=== PATIENT | female | born 1935 | race Caucasian/White ===

== ENCOUNTER 2021-09-14 09:39 | Inpatient (IN) | payer OTHER, MEDICAID ==
[~2021-09-14] VITALS: Ht 154.9 cm; Wt 52.2 kg
[2021-09-14 10:10] VITALS: BP_SYST 176
[2021-09-14] MEDS ORDERED: ONDANSETRON HCL 4 MG/2 ML VIAL IVP ONE (10:30)
[2021-09-14] MEDS ORDERED: MECLIZINE HCL 25 MG TABLET (ANITVERT) PO ONE (10:30)
[2021-09-14 10:41] LABS: BASOPHILS % (AUTO) 0.8 % (0.0-2.0); EOSINOPHILS # (AUTO) 0.1 K/uL (0.0-0.4); EOSINOPHILS % (AUTO) 1.8 % (0.0-4.0); HEMATOCRIT 38.1 % (36-48); HEMOGLOBIN 12.9 g/dL (12.0-16.0); LYMPHOCYTES # (AUTO) 0.9 K/uL (1.0-5.5); LYMPHOCYTES % (AUTO) 20.3 % (20.5-51.5); MEAN CORPUSCULAR HEMOGLOBIN 28 pg (27-31); MEAN CORPUSCULAR HGB CONC 34 % (32-36); MEAN CORPUSCULAR VOLUME 82 fL (79.0-98.0); MONOCYTES # (AUTO) 0.2 K/uL (0.0-1.0); MONOCYTES % (AUTO) 5.2 % (1.7-9.3); NEUTROPHILS # (AUTO) 3.1 K/uL (1.8-7.7); NEUTROPHILS % (AUTO) 71.9 % (40.0-70.0); PLATELET COUNT (AUTO) 152 K/uL (130-430); RED BLOOD CELL COUNT(AUTO) 4.64 MIL/uL (4.2-6.2); RED CELL DISTRIBUTION WIDTH 14.8 % (9.0-15.0); WHITE BLOOD COUNT (AUTO) 4.3 K/uL (4.8-10.8)
[2021-09-14 10:55] LABS: ANION GAP 7 (5-15); CALCIUM 8.8 mg/dL (8.4-11.0); CHLORIDE 104 mmol/L (98-107); GLUCOSE 130 mg/dL (70-99); POTASSIUM 4.4 mmol/L (3.5-5.1); SODIUM SERUM 139 mmol/L (136-145); UREA NITROGEN, BLOOD 25 mg/dL (8-21)
[2021-09-14 11:03] LABS: ALANINE AMINOTRANSFERASE 12 U/L (12-78); ALBUMIN 3.6 g/dL (3.4-4.8); ASPARTATE AMINOTRANSFERASE 33 U/L (10-37); TOTAL BILIRUBIN 0.8 mg/dL (0.0-1.0)
[2021-09-14] MEDS ORDERED: ONDANSETRON 4 MG ODT TAB ONE (11:34)
[2021-09-14] MEDS ORDERED: ONDANSETRON 4 MG ODT TAB PO ONE (11:45)
[2021-09-14] MEDS ORDERED: DIAZEPAM 5 MG TABLET (VALIUM) PO ONE (12:15)
[2021-09-14] MEDS ORDERED: METOCLOPRAMIDE HCL 10 MG/2 ML VIAL IVP ONE ×2 (12:15→13:00)
[2021-09-14] MEDS ORDERED: DIAZEPAM 5 MG TABLET (VALIUM) ONE (12:34)
[2021-09-14 12:50] LABS: BILIRUBIN,URINE NEGATIVE (NEGATIVE); BLOOD, URINE 2+ (NEGATIVE); CLARITY/URINE CLEAR (CLEAR); COLOR,URINE YELLOW (YELLOW); GLUCOSE,URINE NEGATIVE (NEGATIVE); KETONES,URINE NEGATIVE (NEGATIVE); LEUKOCYTE ESTERASE ,URINE NEGATIVE (NEGATIVE); NITRITE, URINE NEGATIVE (NEGATIVE); PH,URINE 6.5 (5.0-8.0); PROTEIN URINE TRACE (NEGATIVE); UROBILINOGEN,URINE 0.2 (0.2-1.0)
[2021-09-14] MEDS ORDERED: DIPHENHYDRAMINE INJ 50 MG/ML VIAL IVP ONE (13:30)
[2021-09-14] MEDS ORDERED: METF-518 PO (14:00)
[2021-09-14] MEDS ORDERED: BENA10TA73 PO (14:00)
[2021-09-14] MEDS ORDERED: MECL25TA3 PO (14:04)
[2021-09-14] MEDS ORDERED: AMLO5TAB92 PO (14:04)
[2021-09-14 14:22] LABS: BACTERIA,URINE RARE /HPF (None Seen); MUCUS,URINE 1+ /LPF (None Seen); WBC,URINE 0-3 /HPF (0-3)
[2021-09-14] MEDS: NORMAL SALINE 5 ML DISP.SYRIN IVF SCH ×2 (14:28→21:05)
[2021-09-14 16:20] VITALS: BP_SYST 143
[2021-09-14 16:40] VITALS: BP_SYST 143
[2021-09-14 21:00] VITALS: BP_SYST 132
[2021-09-14] MEDS: MECLIZINE HCL 25 MG TABLET (ANITVERT) PO SCH (21:03)
[2021-09-15 00:25] VITALS: BP_SYST 126
[2021-09-15] MEDS: NORMAL SALINE 5 ML DISP.SYRIN IVF SCH ×3 (06:23→21:14)
[2021-09-15 08:00] VITALS: BP_SYST 129
[2021-09-15] MEDS: amLODIPine BESYLATE 5 MG TABLET PO SCH (08:58)
[2021-09-15] MEDS: LISINOPRIL 10 MG TABLET (PRINIVIL) PO SCH (08:59)
[2021-09-15 12:00] VITALS: BP_SYST 131
[2021-09-15] MEDS: MECLIZINE HCL 25 MG TABLET (ANITVERT) PO SCH ×2 (14:34→23:57)
[2021-09-15 16:00] VITALS: BP_SYST 126
[2021-09-15 20:28] VITALS: BP_SYST 123
[2021-09-16 00:02] VITALS: BP_SYST 113
[2021-09-16] MEDS: NORMAL SALINE 5 ML DISP.SYRIN IVF SCH ×3 (05:12→21:40)
[2021-09-16 07:53] LABS: ANION GAP 7 (5-15); CALCIUM 8.1 mg/dL (8.4-11.0); CHLORIDE 101 mmol/L (98-107); CREATININE 1.14 mg/dL (0.55-1.30); GLUCOSE 95 mg/dL (70-99); POTASSIUM 4.3 mmol/L (3.5-5.1); SODIUM SERUM 134 mmol/L (136-145); UREA NITROGEN, BLOOD 20 mg/dL (8-21)
[2021-09-16 08:00] VITALS: BP_SYST 122
[2021-09-16] MEDS: amLODIPine BESYLATE 5 MG TABLET PO SCH (08:25)
[2021-09-16] MEDS: ASPIRIN 81 MG TAB.CHEW PO SCH (08:25)
[2021-09-16] MEDS: MECLIZINE HCL 25 MG TABLET (ANITVERT) PO SCH ×3 (08:25→23:34)
[2021-09-16] MEDS: LISINOPRIL 10 MG TABLET (PRINIVIL) PO SCH (08:25)
[2021-09-16 12:00] VITALS: BP_SYST 119
[2021-09-16 16:00] VITALS: BP_SYST 128
[2021-09-16 19:56] VITALS: BP_SYST 128
[2021-09-16 23:45] VITALS: BP_SYST 129; BP_SYST 130
[2021-09-17] MEDS: NORMAL SALINE 5 ML DISP.SYRIN IVF SCH ×3 (05:29→22:37)
[2021-09-17 08:00] VITALS: BP_SYST 134
[2021-09-17] MEDS: ASPIRIN 81 MG TAB.CHEW PO SCH (08:04)
[2021-09-17] MEDS: amLODIPine BESYLATE 5 MG TABLET PO SCH (08:04)
[2021-09-17] MEDS: LISINOPRIL 10 MG TABLET (PRINIVIL) PO SCH (08:05)
[2021-09-17] MEDS: MECLIZINE HCL 25 MG TABLET (ANITVERT) PO SCH ×2 (08:08→20:51)
[2021-09-17 12:00] VITALS: BP_SYST 146
[2021-09-17 16:00] VITALS: BP_SYST 134
[2021-09-17] MEDS ORDERED: ONDANSETRON HCL 4 MG/2 ML VIAL IVP PRN (16:15)
[2021-09-17 20:30] VITALS: BP_SYST 127
[2021-09-18] VITALS: BP_SYST 120
[2021-09-18] MEDS: NORMAL SALINE 5 ML DISP.SYRIN IVF SCH ×3 (06:29→23:31)
[2021-09-18 08:22] VITALS: BP_SYST 152
[2021-09-18] MEDS: ASPIRIN 81 MG TAB.CHEW PO SCH (09:43)
[2021-09-18] MEDS: amLODIPine BESYLATE 5 MG TABLET PO SCH (09:43)
[2021-09-18] MEDS: LISINOPRIL 10 MG TABLET (PRINIVIL) PO SCH (09:43)
[2021-09-18 12:49] VITALS: BP_SYST 145
[2021-09-18] MEDS: MECLIZINE HCL 25 MG TABLET (ANITVERT) PO SCH ×2 (12:59→23:30)
[2021-09-18 16:07] VITALS: BP_SYST 149
[2021-09-18 20:45] VITALS: BP_SYST 130
[2021-09-19 01:28] VITALS: BP_SYST 124
[2021-09-19] MEDS: NORMAL SALINE 5 ML DISP.SYRIN IVF SCH ×3 (06:29→21:28)
[2021-09-19 08:00] VITALS: BP_SYST 135
[2021-09-19] MEDS: ACETAMINOPHEN 325 MG TABLET PO PRN (08:42)
[2021-09-19] MEDS: ASPIRIN 81 MG TAB.CHEW PO SCH (08:43)
[2021-09-19] MEDS: LISINOPRIL 10 MG TABLET (PRINIVIL) PO SCH (08:43)
[2021-09-19] MEDS: amLODIPine BESYLATE 5 MG TABLET PO SCH (08:44)
[2021-09-19 12:00] VITALS: BP_SYST 112
[2021-09-19 16:00] VITALS: BP_SYST 98
[2021-09-19 19:41] VITALS: BP_SYST 112
[2021-09-20 02:23] VITALS: BP_SYST 126
[2021-09-20] MEDS: NORMAL SALINE 5 ML DISP.SYRIN IVF SCH ×3 (05:51→21:07)
[2021-09-20 07:54] LABS: BASOPHILS % (AUTO) 0.6 % (0.0-2.0); EOSINOPHILS # (AUTO) 0.1 K/uL (0.0-0.4); EOSINOPHILS % (AUTO) 2.3 % (0.0-4.0); HEMATOCRIT 31.8 % (36-48); HEMOGLOBIN 10.9 g/dL (12.0-16.0); LYMPHOCYTES % (AUTO) 21.6 % (20.5-51.5); MEAN CORPUSCULAR HEMOGLOBIN 28 pg (27-31); MEAN CORPUSCULAR HGB CONC 34 % (32-36); MEAN CORPUSCULAR VOLUME 81 fL (79.0-98.0); MONOCYTES # (AUTO) 0.3 K/uL (0.0-1.0); MONOCYTES % (AUTO) 7.1 % (1.7-9.3); NEUTROPHILS # (AUTO) 3.1 K/uL (1.8-7.7); NEUTROPHILS % (AUTO) 68.4 % (40.0-70.0); PLATELET COUNT (AUTO) 153 K/uL (130-430); RED BLOOD CELL COUNT(AUTO) 3.91 MIL/uL (4.2-6.2); RED CELL DISTRIBUTION WIDTH 14.4 % (9.0-15.0); WHITE BLOOD COUNT (AUTO) 4.6 K/uL (4.8-10.8)
[2021-09-20 08:00] VITALS: BP_SYST 117
[2021-09-20 08:10] LABS: ANION GAP 7 (5-15); CHLORIDE 94 mmol/L (98-107); CREATININE 1.04 mg/dL (0.55-1.30); GLUCOSE 97 mg/dL (70-99); POTASSIUM 4.4 mmol/L (3.5-5.1); SODIUM SERUM 127 mmol/L (136-145); UREA NITROGEN, BLOOD 28 mg/dL (8-21)
[2021-09-20] MEDS: ASPIRIN 81 MG TAB.CHEW PO SCH (08:18)
[2021-09-20] MEDS: amLODIPine BESYLATE 5 MG TABLET PO SCH (08:18)
[2021-09-20] MEDS: LISINOPRIL 10 MG TABLET (PRINIVIL) PO SCH (08:18)
[2021-09-20] MEDS: NACL 0.9% 1,000 ML IV SCH (10:08)
[2021-09-20 11:35] VITALS: BP_SYST 134
[2021-09-20] MEDS: ACETAMINOPHEN 325 MG TABLET PO PRN (14:12)
[2021-09-20 19:23] VITALS: BP_SYST 109
[2021-09-20] MEDS: MECLIZINE HCL 25 MG TABLET (ANITVERT) PO SCH (21:07)
[2021-09-21 00:54] VITALS: BP_SYST 115
[2021-09-21] MEDS: NACL 0.9% 1,000 ML IV SCH (05:43)
[2021-09-21] MEDS: NORMAL SALINE 5 ML DISP.SYRIN IVF SCH (05:43)
[2021-09-21 08:00] VITALS: BP_SYST 150
[2021-09-21 08:18] LABS: ANION GAP 5 (5-15); CALCIUM 8.3 mg/dL (8.4-11.0); CHLORIDE 99 mmol/L (98-107); CREATININE 0.89 mg/dL (0.55-1.30); GLUCOSE 89 mg/dL (70-99); POTASSIUM 4.4 mmol/L (3.5-5.1); SODIUM SERUM 131 mmol/L (136-145); UREA NITROGEN, BLOOD 17 mg/dL (8-21)
[2021-09-21] MEDS: ASPIRIN 81 MG TAB.CHEW PO SCH (09:00)
[2021-09-21] MEDS: LISINOPRIL 10 MG TABLET (PRINIVIL) PO SCH (09:01)
[2021-09-21] MEDS: amLODIPine BESYLATE 5 MG TABLET PO SCH (09:02)
[2021-09-21] MEDS: MECLIZINE HCL 25 MG TABLET (ANITVERT) PO SCH (09:06)
[2021-09-21 11:50] VITALS: BP_SYST 150
== END 2021-09-21 12:30 | disposition home health service (06) | DRG 149 ==
LOC: SED 09:39 → STU 13:33
PROVIDERS: ADMIT Internal Medicine; ATTEND Internal Medicine
DX: H81.10 Benign paroxysmal vertigo, unspecified ear (principal); E87.1 Hypo-osmolality and hyponatremia; E78.5 Hyperlipidemia, unspecified; I10 Essential (primary) hypertension; E11.9 Type 2 diabetes mellitus without complications; E78.00 Pure hypercholesterolemia, unspecified; M19.012 Primary osteoarthritis, left shoulder; Z20.822 Contact with and (suspected) exposure to COVID-19; Z90.49 Acquired absence of other specified parts of digestive tract; Z87.11 Personal history of peptic ulcer disease; Z79.84 Long term (current) use of oral hypoglycemic drugs; Z79.899 Other long term (current) drug therapy
CPT/HCPCS: 36415; 70450-TC; 71045; 73030; 76376; 80048; 80053; 81000; 82962; 84484; 85025; 93005; 96374; 96375; 99285; G0378; J1200; J2405; J2765; J8597; Q0162